=== PATIENT | female | born 1955 | race Caucasian/White ===

== ENCOUNTER 2024-05-02 10:58 | Outpatient (CLI) | payer MEDICARE, SELFPAY ==
--- NOTE | ~2024-05-02 | CT_ITS ---
CT Scan of the Chest without Contrast: Clinical Indication: Lung cancer screening, nicotine dependence Technique: Contiguous sections were acquired throughout the chest without intravenous contrast. Dose reduction technique was used on this scan by utilizing automated exposure control and iterative recon struction technique. The dose-length product (DLP) was 119.62 mGy-cm. Findings: There is no evidence of any significant mediastinal, hilar or axillary lymphadenopathy. There is diff use aneurysmal dilatation of descending thoracic aorta 4.6 cm in diameter.. There is no evidence of pleural or pericardial effusion. The lungs are clear. No pulmonary nodules or infiltrates are noted. Images through the upper abdomen reveal no abnormalities. Impression: Lung RADS 1: Negative. 12 month follow-up CT advised. Diffuse aneurysmal dilatation of the descending thoracic aorta 4.6 cm in diameter. Reviewed, dictated and finalized at location . Impression: Lung RADS 1: Negative. 12 month follow-up CT advised. Diffuse aneurysmal dilatation of the descending thoracic aorta 4.6 cm in diamet er.
--- OUTSIDE RECORDS SUMMARY | 2024-05-02 11:48 | XMS_ITS | Clinical Summary ---
Author Organization [facility] Address [address] [place] [place] [address] Care Team Providers Care Trading Floor Operator Name Role Phone Unavailable Primary Care Provider Unavailabl e Source Comments [facility],non-owned Affiliates and Associated Physician Practices is amultiple site organization consisting of ambulatory clinics and hospital sitesin [place], [place], [place] and [place]. This disclosure is being madepursuant to the Care Everywhere program and may not contain all information available regarding this patient. Last updated 17.[facility] Allergies No known active allergies Medications * Be aware that medications may not be up to date on this document. Alwaysverify current medications with the patient. Medication Sig Dispensed Refills Start Date End Date Status ALPRAZolam (XANAX PO) Act nano Cetirizine HCl (ZYRTEC ALLERGY PO) Active Social History Tobacco Use Types Packs/Day Years Used Date Smoking Tobacco: Never Assessed Sex and Gender Information Value Date Recorded Sex Assigned at Not on file Gender Identity Not on file Sexual Orientation Not on file Last Filed Vital Signs Vital Sign Reading Time Taken Comments Blood Pressure 118/68 11/25/2015 11:51 AM CDT Pulse 77 11/25/2015 11:51 AM CDT Temperature 36.7 C (98.1 F) 11/25/2015 11:51 AM CDT Respiratory Rate 18 11/25/2015 11:51 AM CDT Oxygen Saturation 96% 11/25/2015 11:51 AM CDT Inhaled Oxygen Concentration - - Weight 84.8 kg (187 lb) 11/25/2015 11:51 AM CDT Height 170.8 cm (5' 7.25 ) 11/25/2015 11:51 AM C DT Body Mass Index 29.07 11/25/2015 11:51 AM CDT Plan of Treatment Health Maintenance Due Date Last Done Comments BONE DENSITY TESTING 1957 COLOGUARD (AGES 45-75) - COL ON CA SCREENING 1957 COLON MONITORING 1957 COLONOSCOPY - COLON CA SCREENING 1957 CT COLONOGRAPHY - COLON CA SCREENING 1957 Colorectal Cancer Screening 1957 FIT - COLON CA SCREENING 1957 FLEX SIG - COLON CA SCREENING 1957 LIPID TESTING 1957 MAMMOGRAM 1957 HEPATITIS C SCREENING 09/26/1975 DTAP/TDAP/TD VACCINES (1 - Tdap) 1976 PNEUMOCOCCAL VACCINE 50+ (1 of 1 - PCV) 10/01/2007 ZOSTER VACCINE (1 of 2) 10/01/2007 COVID-19 VACCINE (1 - 2023-2 5 season) 2023 INFLUENZA VACCINE (#1) 2023 DEPRESSION SCREENING 02/20/2024 Respiratory Syncytial Virus (RSV) Vaccine Pt: or over 60 yrs (1 - 1-dose 75+ series) 2032 HEPATITIS B VACCINE Aged Out No longe r eligible based on patient's age to complete this topic HIB VACCINE Aged Out No longer eligi ble based on patient's age to complete this topic HPV VACCINE Aged Out No longer eligi ble based on patient's age to complete this topic MENINGOCOCCAL (Group B) VACC INE SHARED DECISION-MAKING Aged Out No longer eligibl e based on patient's age to complete this topic MENINGOCOCCAL GROUPS A/C/Y/W VACCINE Aged Out No longer eligible b ased on patient's age to complete this topic
--- OUTSIDE RECORDS SUMMARY | 2024-05-02 11:48 | XMS_ITS | Referral Summary ---
Author Organization [facility] [employer] Address [address] [facility] [place] [address] Care Team Providers Care Device Repair Technician Name Role Phone Unavailable Primary Care Provider Unavailabl e Source Comments [facility] [employer],non-owned Affiliates and Associated Physician Practices is amultiple site organization consisting of ambulatory clinics and hospital sitesin [place], [place] and [place]. This disclosure is being madepursuant to the Care Everywhere program and may not contain all information available regarding this patient. Last updated 17.[facility] [employer] Allergies No known active allergies Medications * [...] 11/25/2015 11:51 AM CDT Plan of Treatment Not on file
--- OUTSIDE RECORDS SUMMARY | 2024-05-02 11:48 | XMS_ITS | Encounter Summary ---
Author Organization [facility] Address [address] [place] [address] Care Team Providers Care Policy Services Representative Name Role Phone Alessandra Shau Primary Care Provider [phone] Encounter Details Date Type Department Care Team (Late Contact Info) Description 09/14/2023 MyChart Message Enc [facility] Family & Internal Medicine [address] [phone] Alessandra Sahu FNP [address] [place] [address] Labs Social History Tobacco Use Types Packs/Day Years Used Date Smoking Tobacco: Every Day Cigarettes 0.8 30 Passive Smoke Exposure: Current Smokeless Tobacco: Never Alcohol Use Standard Drinks/Week Comments Not Currently 0 (1 standard drink = 0.6 oz pur e alcohol) PHQ-2 Answer Date Recorded Patient Health Questionnaire-2 Score 3 04/09/2023 Comments No Sex and Gender Information Value Date Recorded Sex Assigned at Female 04/18/2024 10:40 AM BUSINESS TRANSFORMATION ANALYST Legal Sex Female 2:04 PM CDT Gender Identity Female 04/18/2024 10:40 AM BUSINESS TRANSFORMATION ANALYST Sexual Orientation Not on file documented as of this encounter Plan of Treatment Upcoming Encounters Date Type Department Care Team (Late st Contact Info) Description 10/17/2024 10:40 AM CDT Office Visit [facility] Family & Internal Medicine [address] [phone] Alessandra Sahu FNP [facility] [place] [address] documented as of this encounter Visit Diagnoses Not on filedocumented in this encounter Additional Health Concerns Assessment Noted Time PHQ-9 Depression Total Score: 9 04/09/19 24 2:05 PM BUSINESS TRANSFORMATION ANALYST documented as of this encounter Care Teams Policy Services Representative Relationship Specialty Start Date End Date Alessandra Sahu FNP [address] [place] [id number] PCP - General Nurse Practitioner Family 04/09/23 documented as of this encounter
--- OUTSIDE RECORDS SUMMARY | 2024-05-02 11:48 | XMS_ITS | CONTINUITY OF CARE DOCUMENT ---
Author Name shereen silvinanancy Address Unknown Organization [facility] Address [address] [address] [place] [address] Phone [phone] Care Team Providers Care Mountain Guide Name Role Phone José Miguel Fu MD Unavailable TYREE ARNOLD Unavailable TYREE ARNOLD Unavailable PROBLEMS Condition Status Date Provider Notes Family History of Hypertension: active Melida Fu MD Cardiovascular screening active José Miguel person MD Thoracic aortic aneurysm active José Miguel person MD Tobacco abuse - quit active José Miguel Fu MD Emphysema active José Miguel Fu MD Anxiety active José Miguel Fu MD VENOUS INSUFFICIENCY active José Miguel Fu MD ENCOUNTERS Date Type Provider Location Encounter Diag nosis - In-person encounter Office Visit José Miguel Fu MD [place] [facility] - In-person encounter Office Visit José Miguel Fu MD [place] [facility] - In-person encounter Office Visit José Miguel Fu MD [place] [facility] VENOUS INSUFFICIENCY - In-person encounter Office Visit José Miguel Fu MD [place] [facility] - In-person encounter Office Visit José Miguel Fu MD [place] [facility] Family History of Hypertension:Cardiovascular screeningThoracic aortic aneurysmTobacco abuse - quitEmphysemaAnxiety VITAL SIGNS Date Observation Value Provider Body Mass Index (Ratio) 27.62 kg/m2 Melida Fu MD blood pressure, cuff size regular Ja rret blood pressure, diastolic 73 mm[Hg] Ja blood pressure, systolic 108 mm[Hg] [facility] pulse rate 89 /min [facility] oxygen saturation, oximetry 98 % [facility] respiratory rate E&M 12 /min [facility] weight E&M 179 [lb_av] [facility] y height E&M 67.5 [in_i] [facility] Body Mass Index (Ratio) 27.93 kg/m2 Melida Fu MD blood pressure, cuff size regular Ja blood pressure, diastolic 86 mm[Hg] [facility] blood pressure, systolic 141 mm[Hg] [facility] pulse rate 79 /min [facility] respiratory rate E&M 12 /min [facility] oxygen saturation, oximetry 98 % [facility] weight E&M 181 [lb_av] [facility] y height E&M 67.5 [in_i] [facility] y Body Mass Index (Ratio) 28.08 kg/m2 Melida Fu MD blood pressure, cuff size regular Ke rri blood pressure, diastolic 72 mm[Hg] Ke rri ue blood pressure, systolic 126 mm[Hg] [facility] saturation, oximetry 95 % Sis Padilla respiratory rate E&M 12 /min Sis ramirez pulse rate 87 /min Sis Marroquin [facility] weight E&M 182 [lb_av] Sis Marroquin [facility] height E&M 67.5 [in_i] Sis Marroquin [facility] Body Mass Index (Ratio) 30.40 kg/m2 Melida Fu MD respiratory rate E&M 18 /min [facility] blood pressure, diastolic 65 mm[Hg] To [facility] blood pressure, systolic 116 mm[Hg] [facility] weight E&M 197 [lb_av] [facility] oxygen saturation, oximetry 95 % [facility] pulse rate 78 /min [facility] height E&M 67.5 [in_i] [facility] Body Mass Index (Ratio) 30.70 kg/m2 Melida Fu MD blood pressure, diastolic 74 mm[Hg] [facility] Loraine blood pressure, systolic 128 mm[Hg] Erin Baron height E&M 67.5 [in_i] Carina Salazar oxygen saturation, oximetry 96 % Carina Baron pulse rate 80 /min Carina Salazar blood pressure, resting No Elbert a Loraine weight E&M 199 [lb_av] Carina Salazar ALLERGIES Allergy Name Onset Date Reaction Criticality Status MOLD Low Criticality active SEASONAL Low Criticality active HISTORY OF MEDICATION USE Medication Status Instructions Dates Provider Indications Com ments ibuprofen 200 mg tablet active 3 tablet twice a day as needed Sis Padilla collagen, hydr (bovine) (bulk) 100% powder active 2 teaspoon once a day Sis Padilla cyanocobalamin (vitamin B-12) 1,000 mcg tablet active 1 tablet once a day Sis Padilla Vitamin D3 25 mcg (1,000 unit) tablet active 1 tablet once a day Sis Padilla melatonin 5 mg tablet active 1 tablet once a day Sis Martinezzeny naproxen 500 mg tablet active 1 tablet twice a day Sis Padilla #60, 30 days supply, Prescribed by BRIDGET HERNANDES, Filled 08/20/2017 oxybutynin chloride 5 mg tablet active 1 tablet once a day Sis Padilla #30, 30 days supply, Prescribed by BRIDGET HERNANDES, Filled 02/22/2017 AFLURIA QUADRIVALENT 0.5 ML JAVIER active Administer 0.5 ml intramuscularly as directed Sis Padilla #0.5, 1 days supply, Prescribed by ELIDA FABIAN, Filled 11/14/2018 alprazolam 0.25 mg tablet active Take 1 tablet by mouth twice a day as needed Sis Padilla #60, 30 days supply, Prescribed by BRIDGET HERNANDES, Filled 12/16/2018 SOCIAL HISTORY Date Observation Value Provider social history reviewed E&M revi ewed - no changes required José Miguel Fu MD social history E&M S moking History: Timo wayne is a former smoker. José Miguel Fu MD smoking status Former smoker José Miguel Fu MD social history reviewed E&M revmathew ewed - no changes required José Miguel Fu MD drug use no José Miguel Fu MD alcohol use, average drinks per day social José Miguel Fu MD alcohol use yes José Miguel Fu MD smoking history, tot al pack/day 10 José Miguel Fu MD cigarette use yes José Miguel Vogt smoking status Former smoker José Miguel Fu MD social history reviewed E&M revi ewed - no changes required José Miguel Fu MD social history E&M S moking History: Timo wayne is a former smoker. José Miguel Fu MD social history reviewed E&M revi ewed - no changes required José Miguel Fu MD smoking history, [facility] al pack[facility] smoking status Former smoker [facility] number of grandchildren José Miguel Fu MD U eloina Fu MD drug use no José Miguel Fu MD alcohol use, average drinks per day social José Miguel Fu MD alcohol use yes José Miguel Fu MD social history E&M S moking History: iTmo wayne is a former smoker. José Miguel uF MD smoking history, tot al pack/day 10 Carina Baron cigarette use yes Carina Flores social history reviewed E&M revi ewed - no changes required Carina Baron smoking status Former smoker José Miguel Fu MD FAMILY HISTORY Family Member Condition Father Family History of Di abetes: Mother Family History of Hy pertension: Mother Family History of Co luna Cancer: INSURANCE PROVIDERS Payer name Policy type / Coverage type [place] red republican ID AARP MEDICARE ADVANTAGE PLAN 2 HMO HMO [id number] [facility] Medicaid 3 [id number] ADVANCE DIRECTIVES Name Date DISCUSSED - NO DECISION MADE TREATMENT PLAN Date Name Performer [id number] Usman Qayyum MD [id number],C,R ecent Venous Doppler 1 . No evidence of a deep vein thrombosis of the lower extremities bilaterally. 2 . Significant venous insufficiency of the great saphenous vein bilaterally. 3 . Pulsitle venous flow seen in the left CFV. José Miguel Fu MD [id number],S, José Miguel Fu MD [id number],S,P artly resposinve to the compression socks. Advied to wear the compression socks on a regular basis. Will probably recommedn closure of the GSV or verecosities related to it. José Miguel Fu MD [id number],C,H x of treatment of GSV. Had sx but no longer does. José Miguel Fu MD Cardiology José Miguel Fu MD Cardiology:Recent Ve nous Doppler 1 . No evidence of a deep vein thrombosis of the lower extremities bilaterally. 2 . Significant venous insufficiency of the great saphenous vein bilaterally. 3 . Pulsitle venous flow seen in the left CFV. José Miguel Fu MD Cardiology José Miguel Fu MD Cardiology:Partly re sposinve to the compression socks. Advied to wear the compression socks on a regular basis. Will probably recommedn closure of the GSV or verecosities related to it. José Miguel Fu MD Cardiology:Hx of reanna atment of GSV. Had sx but no longer does. José Miguel Fu MD Cardiology José Miguel Fu MD Cardiology José Miguel Fu MD Cardiology:Mild aort ic dilitation on echo and no AAA on abdominal ultrasound. Will repeat an echo in a year. José Miguel Fu MD Cardiology:Measuring 3.[address] scan 01/08/19. Will check an aorta duplex to check for AAA. Will also check an echo. José Miguel Fu MD Cardiology José Miguel Fu MD Cardiology José Miguel Fu MD Cardiology José Miguel Fu MD Date Name Complete Echo Venous Doppler Bilat eral LE - Reflux Complete Echo Aorta Duplex Ultraso und Complete Echo HISTORY OF PROCEDURES Procedure Date Procedure Name Provider Procedure Notes S tatus EKG José Miguel Fu MD completed
--- OUTSIDE RECORDS SUMMARY | 2024-05-02 11:48 | XMS_ITS | Patient Health Summary ---
Author Organization [facility] Address [address] [address] Care Team Providers Care Sustainable Communities Designer Name Role Phone Unavailable Primary Care Provider Unavailabl e Note from [facility],non-owned Affiliates and Associated Physician Practices is amultiple site organization consisting of ambulatory clinics and hospital sitesin [place], [place], [place] and [place]. This disclosure is being madepursuant to the Care Everywhere program and may not contain all information available regarding this patient. Last updated 17.[facility] Allergies No known active allergies Medications * Be aware that medications may not be up to date on this document. Alwaysverify current medications with the patient. * ALPRAZolam (XANAX PO) * Cetirizine HCl (ZYRTEC ALLERGY PO) Social History Tobacco Use Types Packs/Day Years [...]
--- OUTSIDE RECORDS SUMMARY | 2024-05-02 11:48 | XMS_ITS | Clinical Summary ---
Author Organization [facility] Address [facility] [place] [address] Care Team Providers Care Tent Finisher Name Role Phone Alessandra Sahu JOSEPH Primary Care Provider [phone] Allergies Active Allergy Reactions Criticality Noted Date Comments Molds & Smuts Eyes Water & Itch Low 09/01/2022 Seasonal Eyes Water & Itch Low 09/01/2022 Medications naproxen (NAPROSYN) 500 MG tablet Take 1 tablet (500 mg total) by mouth 2 (two) times daily with meals. Active cetirizine (ZYRTEC) 10 MG tablet Take 1 tablet (10 mg total) by mouth daily. Active fluticasone propionate (FLONASE) 50 MCG/ACT nasal sprayIndicatio ns:Seasonal allergies 1 spray by Nasal route daily. 16 g 5 05/22/19 24 Active valACYclovir (VALTREX) 1 g tabletIndicati ons:Recurrent cold sores Take 2 tablets (2,000 mg total) by mouth 2 (two) times daily. 90 tablet 1 10/19/19 24 Active Additional Information Patient not taking.Reported on 04/18/2024 traZODone (DESYREL) 50 MG tabletIndicati ons:Primary insomnia TAKE 1 AND 1/2 TABLETS BY MOUTH DAILY 45 tablet 01/28/20 24 Active albuterol sulfate HFA 108 (90 Base) MCG/ACT inhalerIndicat ions:Wheezing Inhale 2 puffs into the lungs every 4 (four) hours as needed. 18 g 5 03/11/19 25 Active oxybutynin XL (DITROPAN-XL) 10 MG 24 hr tabletIndicati ons:OAB (overactive bladder) Take 1 tablet (10 mg total) by mouth daily. 30 tablet 1 03/18/19 25 Active ALPRAZolam (XANAX) 0.25 MG tabletIndicati ons:Anxiety Take one tablet by mouth BID prn 60 tablet 1 04/18/19 25 Active methylPREDNISo KEENAN granda, (MEDROL DOSEPAK) 4 MG tabletIndicati ons:Ear ache Take 1 tablet (4 mg total) by mouth see administration instructions. 6 TABLETS ON DAY ONE, 5 TABLETS DAY TWO, 4 TABLETS DAY THREE, 3 TABLETS DAY FOUR, 2 TABLETS DAY FIVE, AND 1 TABLET DAY SIX 1 each 04/22/19 25 Active MYRBETRIQ 25 MG 24 hr tabletIndicati ons:OAB (overactive bladder) Take 1 tablet (25 mg total) by mouth daily. 90 tablet 3 03/11/19 25 025 Discontin ued(Insur irvin guadalupe) ALPRAZolam (XANAX) 0.25 MG tabletIndicati ons:Anxiety Take one tablet by mouth BID prn 60 tablet 1 03/11/19 25 025 Discontin ued(Reord er) Active Problems Problem Noted Date Diagnosed Date Pulmonary emphysema, unspeci fied emphysema type ([facility]/HCC HHS/HCC) 04/18/2024 Thoracic aortic aneurysm without rupture, unspec ified part 04/18/2024 Skin abnormalities 10/19/2023 Discoloration of skin of face 10/19/2023 Skin lesion of back 10/19/2023 Skin lesion of breast 10/19/2023 Nicotine dependence, cigarettes, uncomplicated 0 04/11/2023 Anxiety 04/11/2023 Primary insomnia 04/11/2023 OAB (overactive bladder) 04/11/2023 Post-menopausal 04/11/2023 Vitamin D deficiency, unspecified 04/11/2023 Varicose veins of both lower extremities, unspecified whether complicated 04/11/2023 Recurrent cold sores 04/11/2023 Family history of colon cancer in mother 024 Overweight with body mass in dex (BMI) of 29 to 29.9 in adult 04/09/2023 Encounters Date Type Department Care Team Description 04/28/[address] [address] Alessandra Sahu FNP Orders 04/24/[address] [address] Alessandra Sahu FNP Lab Results 04/21/[address] [address] Alessandra Sahu FNP Ear Problem (C/o congestion in ears) 04/18/2024 10:40 AM RUBBER CURER Office Visit [address] [address] Alessandra Sahu FNP Follow Up (6 mo f/u) 04/18/2024 - 04/18/2024 11:59 PM RUBBER CURER Hospital Encounter [facility] [place] [address] Alessandra Sahu FNP Discharge Disposition: Home or Self Care (Routine Discharge) 04/18/2024 Travel 04/10/2024 Patient Outreach [address] [address] Alessandra Sahu FNP Pre-visit Gap Closure 03/18/[address] [address] Alessandra Sahu FNP Medication from Last 3 Months Immunizations Name Administration Dates Next Due Abrysvo Respiratory Syncytia l Virus (RSV) 0.5 mL, PF 06/11/2023 Fluzone High Dose (IIV, triv alent, 0.5mL) 12/04/2023 Fluzone High Dose - >Age 65 (Prefilled Syringe) 11/29/2022 Influenza (Generic) 12/03/2020, 7,11/28/2015,2014,12/02/2014,11/29/2013,12/15/2011 Influenza Adult (Generic) 11/29/2021,,11/11/2019,2018,11/14/2018,11/01/2017 Pneumococcal (Pneumovax 23) 04/13/2020 Pneumococcal (Prevnar 20) 11/03/2022 Shingrix 12/04/2023 Tdap (Generic) 06/30/2021 Family History Medical History Relation Comments Hypertension Father Cancer Mother Colon Cancer Hypertension Mother varicose vein Sister Relation Status Comments Father Mother Alive Sister Alive Social History Tobacco Use Types Packs/Day Years Used Date Smoking Tobacco: Every Day Cigarettes 0.8 30 Passive Smoke Exposure: Current Smokeless Tobacco: Never Tobacco Cessation:Ready to Q uit: Yes; Counseling Given: Yes Alcohol Use Standard Drinks/Week Comments Not Currently 0 (1 standard drink = 0.6 oz pur e alcohol) PHQ-2 Answer Date Recorded Patient Health Questionnaire-2 Score 1 04/18/2024 Comments No Sex and Gender Information Value Date Recorded Sex Assigned at Female 04/18/2024 10:40 AM RUBBER CURER Legal Sex Female 2:04 PM CDT Gender Identity Female 04/18/2024 10:40 AM RUBBER CURER Sexual Orientation Not on file Last Filed Vital Signs Vital Sign Reading Time Taken Comments Blood Pressure 124/80 04/18/2024 10:44 AM RUBBER CURER Pulse 62 04/18/2024 10:44 AM RUBBER CURER Temperature 36.8 C (98.2 F) 04/18/2024 10:44 AM RUBBER CURER Respiratory Rate 15 04/18/2024 10:44 AM RUBBER CURER Oxygen Saturation 97% 04/18/2024 10:44 AM RUBBER CURER Inhaled Oxygen Concentration - - Weight 82.8 kg (182 lb 8 oz) 04/18/2024 10:44 AM RUBBER CURER Height 167.6 cm (5' 6 ) 04/18/2024 10:44 AM RUBBER CURER Body Mass Index 29.46 04/18/2024 10:44 AM RUBBER CURER Plan of Treatment Upcoming Encounters Date Type Department Care Team (Late st Contact Info) Description 10/17/2024 10:40 AM CDT Office Visit [facility] Family [facility] Internal Medicine [address] [address] Alessandra Sahu FNP [address] [place] [address] Health Maintenance Due Date Last Done Comments Annual Medicare Wellness Visit 2022 Dexa Scan (General) 2022 Zoster Vaccines (2 of 2) 01/29/2024 12/04/2023 COVID-19 Vaccine (4 - season) 2025 11/29/2021, 02/22/2021, 05/29/2020 Postponed from 10/21/2023 (Patient Refused) Mammogram Screening 05/31/2025 06/01/2023 Colorectal Cancer Screening Colonoscopy (10 Years) 01/30/2027 01/30/2022 DTaP, Tdap and Td Vaccines (2 - Td or Tdap) 07/01/2031 06/30/2021 Pneumococcal Vaccine: 65+ Years Completed 11/03/2022, 04/13/2020 RSV Immunization or 60+ Years Completed 06/11/2023 Influenza Adult Completed 12/04/2023, 11/19, 11/29/2021, Additional history exists Hepatitis C Completed 04/18/2024 PHQ-2 (Physician [place]) Completed 04/18/2024 Meningococcal B Vaccine Aged Out No l onger eligible based on patient's age to complete this topic Meningococcal Vaccine Aged Out No luna woody eligible based on patient's age to complete this topic RSV Immunizations Under 20 Months Aged Out No longer eligible based on patient's age to complete this topic Procedures Procedure Name Priority Date/Time Associated Diagnosis Comments CBC W/DIFF AUTOMATED Routine 04/22/2024 12:05 PM RUBBER CURER Thoracic aortic aneurysm without rupture, unspecified part Overweight with body mass index (BMI) of 29 to 29.9 in adult URINALYSIS MICRO ONLY 04/22/2024 12:00 PM RUBBER CURER URINALYSIS Routine 04/22/2024 12:00 PM RUBBER CURER Thoracic aortic aneurysm without rupture, unspecified part Overweight with body mass index (BMI) of 29 to 29.9 in adult HEPATITIS C ANTIBODY Routine 04/18/2024 12:14 PM RUBBER CURER Encounter for hepatitis C screening test for low risk patient LIPID PANEL Routine 04/18/2024 12:14 PM RUBBER CURER Thoracic aortic aneurysm without rupture, unspecified part Overweight with body mass index (BMI) of 29 to 29.9 in adult TSH W/REFLEX Routine 04/18/2024 12:14 PM RUBBER CURER Thoracic aortic aneurysm without rupture, unspecified part Overweight with body mass index (BMI) of 29 to 29.9 in adult Chronic fatigue VITAMIN D, 25 OH Routine 04/18/2024 12:1 4 PM RUBBER CURER Vitamin D deficiency, unspecified URIC ACID BLOOD Routine 04/18/2024 12:14 PM RUBBER CURER Thoracic aortic aneurysm without rupture, unspecified part Overweight with body mass index (BMI) of 29 to 29.9 in adult COMPREHENSIVE METABOLIC PANEL Routine 04/18/2024 12:14 PM RUBBER CURER Thoracic aortic aneurysm without rupture, unspecified part Overweight with body mass index (BMI) of 29 to 29.9 in adult FOLIC ACID SERUM Routine 04/18/2024 12:1 4 PM RUBBER CURER Thoracic aortic aneurysm without rupture, unspecified part Overweight with body mass index (BMI) of 29 to 29.9 in adult Anxiety Primary insomnia MAGNESIUM Routine 04/18/2024 12:14 PM RUBBER CURER Thoracic aortic aneurysm without rupture, unspecified part Overweight with body mass index (BMI) of 29 to 29.9 in adult Anxiety Primary insomnia VITAMIN B-12 Routine 04/18/2024 12:14 PM RUBBER CURER Thoracic aortic aneurysm without rupture, unspecified part Overweight with body mass index (BMI) of 29 to 29.9 in adult Anxiety Primary insomnia COLLECTION VENOUS BLOOD VENIPUNCTURE Routine 04/18/2024 11:04 AM RUBBER CURER Thoracic aortic aneurysm without rupture, unspecified part Overweight with body mass index (BMI) of 29 to 29.9 in adult Anxiety Primary insomnia Vitamin D deficiency, unspecified Encounter for hepatitis C screening test for low risk patient MG/PCCL UDS W CONF Routine 04/18/2024 10 :48 AM RUBBER CURER Encounter for long-term (current) drug use MAMMOGRAM GENERIC (SCAN ORDER) 06/01/2023 COLONOSCOPY GENERIC (SCAN ORDER) 01/30/2022 from Last 3 Months or Most Recently Relevant to Health Maintenance Results * (ABNORMAL) CBC W/DIFF AUTOMATED (04/22/2024 12:05 PM RUBBER CURER) Pathologist [facility] WBC 7.8 3.4 - 10.8 x10E3/uL [facility] RBC 5.30(H) 3.77 - 5.28 x10E6/uL [facility] HGB 16.2(H) 11.1 - 15.9 g/dL [facility] 1 HCT 49.8(H) 34.0 - 46.6 % [facility] 1 MCV 94 79 - 97 fL [facility] 1 MCH 30.6 26.6 - 33.0 pg [facility] 1 MCHC 32.5 31.5 - 35.7 g/dL [facility] 1 RDW 12.8 11.7 - 15.4 % [facility] 1 PLATELET COUNT 215 150 - 450 x10E3/uL [facility] 1 NEUTROPHILS % 57 Not Estab. % [facility] LYMPHOCYTES % 34 Not Estab. % [facility] MONOCYTES % 7 Not Estab. % [facility] 1 EOSINOPHILS % 2 Not Estab. % [facility] 1 BASOPHILS % 0 Not Estab. % [facility] 1 ABS. NEUTROPHILS 4.4 1.4 - 7.0 x10E3/uL [facility] 1 ABS. LYMPHOCYTES 2.7 0.7 - 3.1 x10E3/uL [facility] 1 MONOCYTES 0.5 0.1 - 0.9 x10E3/uL [facility] 1 ABS. EOSINOPHILS 0.1 0.0 - 0.4 x10E3/uL [facility] 1 ABS. BASOPHILS 0.0 0.0 - 0.2 x10E3/uL [facility] 1 ABS. IMMATURE GRANULOCYTES 0 Not Estab. % [facility] 1 ABS. IMMATURE GRANULOCYTES 0.0 0.0 - 0.1 x10E3/uL [facility] 1 04/22/2024 12:0 5 PM RUBBER CURER 04/22/2024 Narrative [facility] - 04/23/2024 6:09 AM RUBBER CURER Performed at: [address] [place] [id number] Bridge/Structure Inspection Team Leader: Sg Crawford PhD, Phone: [phone] Alessandra Porraseugenio [facility] Final Result Performing Organization Address [facility] de Phone Number [facility] [address] [place] [address] [facility] * (ABNORMAL) URINALYSIS (04/22/2024 12:00 PM RUBBER CURER) [facility] SPECIFIC GRAVITY (U) 1.008 1.005 - 1.03 [facility] 1 PH (U) 7.5 5.0 - 7.5 [facility] 1 COLOR (U) Yellow Yellow [facility] 1 APPEARANCE SEMEN Clear Clear [facility] 1 LEUK ESTERASE (U) 1+(A) Negative [facility] 1 PROTEIN (U) Negative Negative/T [facility] 1 GLUCOSE (U) Negative Negative [facility] 1 KETONES MG/DL (U) Negative Negative [facility] 1 BLOOD (U) 1+(A) Negative [facility] 1 BILIRUBIN (U) Negative Negative [facility] 1 UROBILINOGEN 0.2 0.2 - 1.0 mg/dL [facility] 1 NITRITES Negative Negative [facility] 1 MICROSCOPIC DESCRIPTION See below: [facility] 1 Comment:Microscopic was dottie cated and was performed. URINE SPECIMEN OBTAINED BY CLEAN CATCH PROCEDURE / Unknown 04/22/2024 12:00 PM RUBBER CURER 04/22/2024 Narrative [facility] - 04/23/2024 6:09 AM RUBBER CURER Performed at: [facility] [id number] Bridge/Structure Inspection Team Leader: Sg Crawford PhD, Phone: [phone] Alessandra Sahu [facility] URINE ORDERABLES Final Result Performing Organization Address [facility]/ZIP Co de Phone Number [facility] [address] [place] [address] [facility] * URINALYSIS MICRO ONLY (04/22/2024 12:00 PM RUBBER CURER) WBC/HPF 0-5 0 - 5 /hpf [facility] 1 RBC/HPF None seen 0 - 2 /hpf [facility] 1 EPI/HPF 0-10 0 - 10 /hpf [facility] 1 URINE CASTS 1 QTY None seen None seen /lpf [facility] 1 BACTERIA (U) None seen None seen/ [facility] 1 04/22/2024 12:0 0 PM RUBBER CURER 04/22/2024 Narrative [facility] - 04/23/2024 6:09 AM RUBBER CURER Performed at: 01 - [facility] [address] [id number] Bridge/Structure Inspection Team Leader: Sg Crawford PhD, Phone: [phone] us Alessandra Kilzer ADOBE CQ DEVELOPER URINE ORDERABLES Final Result [facility] [address] [place] [id number] [facility] * TSH W/REFLEX (04/18/2024 12:14 PM RUBBER CURER) Pathologist [facility] TSH 2.935 0.358 - 3.740 uIU/ML 04/18/2024 4:25 PM RUBBER CURER [facility] 04/18/2024 12:1 4 PM RUBBER CURER Alessandra Vernzer ADOBE CQ DEVELOPER LABORATORY Final Result Performing Organization Address City/[facility]/ZIP Co de Phone Number [facility] [address] [place] [address], * VITAMIN B-12 (04/18/2024 12:14 PM RUBBER CURER) Pathologist [facility] VITAMIN B12 S/P/B 296 193 - 986 PG/ML 04/18/2024 4:25 PM RUBBER CURER [facility] 04/18/2024 12:1 4 PM RUBBER CURER us Alessandra Kilzer ADOBE CQ DEVELOPER LABORATORY Final Result -[facility] SYLWIA HICKMAN [address] [place] [address], * COMPREHENSIVE METABOLIC PANEL (04/18/2024 12:14 PM RUBBER CURER) [facility] SODIUM S/P/B 141 136 - 145 MMOL/L 04/18/2024 4:25 PM RUBBER CURER [facility] POTASSIUM S/P/B 4.7 3.5 - 5.1 MMOL/L 04/18/2024 4:25 PM RUBBER CURER [facility] CHLORIDE S/P/B 104 98 - 107 MMOL/L 04/18/2024 4:25 PM RUBBER CURER [facility] CO2 27.4 21 - 32 MMOL/L 04/18/2024 4:25 PM RUBBER CURER [facility] GLUCOSE 85 70 - 99 MG/DL 04/18/2024 4:25 PM RUBBER CURER [facility] BUN 8 7 - 18 MG/DL 04/18/2024 4:25 PM RUBBER CURER [facility] CREATININE S/P/B 0.59 0.55 - 1.02 MG/DL 04/18/2024 4:25 PM RUBBER CURER [facility] CALCIUM S/P/B 9.4 8.4 - 10.5 MG/DL 04/18/2024 4:25 PM RUBBER CURER [facility] BILIRUBIN TOTAL S/P/B 0.7 0.2 - 1.0 MG/DL 04/18/2024 4:25 PM RUBBER CURER [facility] ALKALINE PHOSPHATASE S/P/B 77 55 - 142 U/L 04/18/2024 4:25 PM RUBBER CURER [facility] AST 16 15 - 37 U/L 04/18/2024 4:25 PM RUBBER CURER [facility] ALT 18 14 - 59 U/L 04/18/2024 4:25 PM [facility] TOTAL PROTEIN S/P/B 6.8 6.4 - 8.2 G/DL 04/18/2024 4:25 PM RUBBER CURER [facility] ALBUM[facility] S/P/B 3.9 3.4 - 5.0 G/DL 04/18/2024 4:25 PM [facility]BB[facility] CUR[facility] ANION GAP 9.6 5 - 15 MMOL/L 04/18/2024 4:25 PM [facility]BB[facility] CURER [facility] Comment:REFERENCE RANGE NOT ESTABLISHED OSMOLALITY (CALC) 290 MOSM/KG 025 4:25 PM RUBBER CURER [facility] Comment:REFERENCE RANGE NOT ESTABLISHED GFR ESTIMATE >90 >90 ML/MIN/1. 73 M2 04/18/2024 4:25 PM [facility]BB[facility] CURER [facility] GFR NOTES GFR REFERENCE S: 04/18/2024 4:25 PM [facility] Comment: THE ESTIMATED GFR IS CALCULATED USING THE 2020 CKD-EPI EQUATION. THE FOLLOWING CATEGORIES FOR GRADING RENAL FUNCTION ARE RECOMMENDED BY THE INTERNATIONAL SOCIETY OF NEPHROLOGY (KDIGO 2012 CLINICAL PRACTICE GUIDELINE). G1,NORMAL OR HIGH: >89 ml/min/1.73 m2 G2,MILDLY DECREASED: 60-89 ml/min/1.73 m2 G3A,MILDLY TO MODERATELY DECREASED: 45-59 ml/min/1.73 m2 G3B,MODERATELY TO SEVERELY DECREASED: 30-44 ml/min/1.73 m2 G4,SEVERELY DECREASED: 15-29 ml/min/1.73 m2 G5,KIDNEY FAILURE: <15 ml/min/1.73 m2 04/18/2024 12:1 4 PM RUBBER CURER Alessandra RUIZ LABORATORY Final Result [facility] SYLWIA HICKMAN [address] [place] [address], * (ABNORMAL) LIPID PANEL (04/18/2024 12:14 PM RUBBER CURER) CHOLESTEROL 198 <200 MG/DL 04/18/2024 4:25 PM [facility]BB[facility] CURER [facility] TRIGLYCERIDES 121 <150 MG/DL 04/18/2024 4:25 PM RUBBER CURER [facility] HDL 50 >40 MG/DL 04/18/2024 4:25 PM RUBBER CURER [facility] LDL-C 124(H) <100 MG/DL 04/18/2024 4:25 PM RUBBER CURER [facility] VLDL CALCULATION 24 5 - 28 MG/DL 04/18/2024 4:25 PM RUBBER CURER [facility] CHOL/HDL RATIO 4.0 0.0 - 4.0 04/18/2024 4:25 PM RUBBER CURER [facility] LDL/HDL 2.5(H) 0.41 - 2.13 04/18/2024 4:25 PM RUBBER CURER [facility] NON HDL CHOLESTEROL 148(H) <140 MG/DL 04/18/2024 4:25 PM RUBBER CURER [facility] 04/18/2024 12:1 4 PM RUBBER CURER [facility] LABORATORY Final Result [facility] [address] [place] [address], [place] [phone] * HEPATITIS C ANTIBODY ([facility] ONLY) (04/18/2024 12:14 PM RUBBER CURER) HEPATITIS C AB NON-REACTI VE NON-REACT WOOD 04/18/2024 8:22 PM RUBBER CURER [facility] Comment: ANTIBODIES TO HCV NOT DETECTED. DOES NOT EXCLUDE THE POSSIBILITY OF EXPOSURE TO HCV. 04/18/2024 12:1 4 PM RUBBER CURER [facility] LABORATORY Final Result [facility] [address] [place] [address], [place] [phone] [id number] * FOLIC ACID SERUM (04/18/2024 12:14 PM RUBBER CURER) [facility] FOLATE 17.2 8.6 - 58.9 NG/ML 04/18/2024 2:57 PM RUBBER CURER [facility] 04/18/2024 12:1 4 PM RUBBER CURER Alessandra Porraseugenio [facility] Final Result [facility] [address] [place] [address], [place] [phone] * VITAMIN D, 25 OH (04/18/2024 12:14 PM RUBBER CURER) [facility] VITAMIN D 25 HYDROXY TOTAL S/P/B 40.9 30 - 100 NG/ML 04/18/2024 4:25 PM RUBBER CURER [facility] Comment: DEFICIENT <20 INSUFFICIENT 20-30 SUFFICIENT 30-100 04/18/2024 12:1 4 PM RUBBER CURER Alessandra Proraseugenio [facility] Final Result Performing Organization Address City/[facility]/ZIP Co de Phone Number [address] [address], [place] [phone] * MAGNESIUM (04/18/2024 12:14 PM RUBBER CURER) [facility] MAGNESIUM 2.4 1.8 - 2.4 MG/DL 04/18/2024 4:25 PM RUBBER CURER [facility] 04/18/2024 12:1 4 PM RUBBER CURER Alessandra Porraseugenio [facility] Final Result [facility] [address] [place] [address], [place] [phone] * URIC ACID BLOOD (04/18/2024 12:14 PM RUBBER CURER) URIC ACID 3.4 2.6 - 6.0 MG/DL 04/18/2024 3:45 PM RUBBER CURER [facility] 04/18/2024 12:1 4 PM RUBBER CURER Alessandra Sahu [facility] Final Result [facility] [address] [place] [address], * (ABNORMAL) MG/PCCL UDS W CONF (04/18/2024 10:48 AM RUBBER CURER) RESULT SUMMARY [facility] Comment: Prescribed Prescribed Not Prescribed Consistent Inconsistent Inconsistent Xanax(TM) PRESCRIBED DRUG 1 (U) Xanax(TM) [facility] FENTANYL SCREEN (U) NEGATIVE <0.5 ng/mL [facility] MORPHINE (U) NEGATIVE <10 ng/mL [facility] DESMETHYLTRAMADOL (U) NEGATIVE <100 ng/mL [facility] TRAMADOL (U) NEGATIVE <100 ng/mL [facility] TRAMADOL COMMENTS [facility] Comment:See LDT Notes AMPHETAMINES PM NEGATIVE <500 ng/mL [facility] BARBITURATES PM (U) NEGATIVE <300 ng/mL [facility] BENZODIAZEPINES PM (U) POSITIVE(A) <100 ng/mL [facility] ALPHAHYDROXYALPRAZOLAM PM (U) 34(H) <25 ng/mL [facility] ALPHAHYDROXYALPRAZOLAM PM MEDMATCH (U) CONSISTENT [facility] MIDAZOLAM PM (U) NEGATIVE <50 ng/mL [facility] ALPHAHYDROXYTRIAZOLAM PM (U) NEGATIVE <50 ng/mL [facility] AMINOCLONAZEPAM PM (U) NEGATIVE <25 ng/mL [facility] OH ET FLURAZEPAM PM (U) NEGATIVE <50 ng/mL [facility] LORAZEPAM PM (U) NEGATIVE <50 ng/mL [facility] NORDIAZEPAM PM (U) NEGATIVE <50 ng/mL [facility] OXAZEPAM PM (U) NEGATIVE <50 ng/mL [facility] TEMAZEPAM PM NEGATIVE <50 ng/mL [facility] BENZODIAZEPINES COMMENTS [facility] [place] Comment:See Benzodiazepines Notes, LDT Notes COCAINE METABOLITE PM (U) NEGATIVE <150 ng/mL [facility] MARIJUANA METABOLITE PM (U) NEGATIVE <20 ng/mL [facility] METHADONE PM (U) NEGATIVE <100 ng/mL [facility] OPIATES PM (U) NEGATIVE <100 ng/mL [facility] OXYCODONE PM (U) NEGATIVE <100 ng/mL [facility] CREATININE RANDOM (U) 60.1 > or = 20.0 mg/dL [facility] pH PM (U) 7.4 4.5 - 9.0 [facility] OXIDANT NEGATIVE <200 mcg/mL [facility] NOTE [facility] Comment: This drug testing is for medical treatment only. Analysis was performed as non-forensic testing and these results should be used only by healthcare providers to render diagnosis or treatment, or to monitor progress of medical conditions. Benzodiazepines Notes: aOH Alprazolam detected is consistent with the use of the drug Alprazolam. LDT Notes: Confirmation tests were developed and their analytical performance characteristics have been determined by [facility]. It has not been cleared or approved by the FDA. This assay has been validated pursuant to the CLIA regulations and is used for clinical purposes. medMATCH(R) enables providers to identify if drug use is consistent or inconsistent with a corresponding prescribed medication(s) list. Healthcare Providers needing Interpretation assistance, please contact us at [phone] ( ) M-F, 8am to 10pm EST URINE SPECIMEN / Unknown 04/18/2024 10:48 AM RUBBER CURER 04/19/2024 2:03 AM RUBBER CURER Narrative Resulting Agency Comment Performing Organization Information: Site ID: [id number] Name: [email or web address] Address: [address] [place] [address] Director: Shaun Tejada Site ID: [place] Name: [facility] Address: [address] [facility] [place] [address] Director: Dayana Arthur MD Alessandra Sahu ADOBE CQ DEVELOPER URINE ORDERABLES Final Result [facility] [address] [facility] [place] [address], [facility] [place] [address] [place] [address] * MAMMOGRAM GENERIC (SCAN ORDER) (06/01/2023) Anatomical Region Laterality Modality Other 06/01/2023 [facility] Scanned SCANNING Final Resu lt * COLONOSCOPY GENERIC (SCAN ORDER) (01/30/2022) 01/30/2022 [facility] Scanned SCANNING Final Resu lt from Last 3 Months or Most Recently Relevant to Health Maintenance Insurance [facility] Care Teams Tent Finisher Relationship Specialty Start Date End Date Alessandra Sahu FNP [address] [place] [address] [phone] PCP - General Nurse Practitioner Family 04/09/23
== END 2024-05-02 10:59 | disposition home or self-care (01) ==
PROVIDERS: PCP Nurse Practitioner Family; Visit Provider Nurse Practitioner Family
DX: Z12.2 Encounter for screening for malignant neoplasm of respiratory organs (principal); F17.210 Nicotine dependence, cigarettes, uncomplicated; I71.23 Aneurysm of the descending thoracic aorta, without rupture
CPT/HCPCS: 71271

== ENCOUNTER 2024-08-25 08:54 | Outpatient (CLI) | payer MEDICARE, SELFPAY ==
--- NOTE | ~2024-08-25 | DEXA_ITS ---
Bone Density Report Name: MIHAELA COTA Age: 68 Sex: Female Ethnicity: White Date of : 1955 Indication: postmenopausal; screening for osteoporosis; height loss; prior fracture; Referring Provider: MARKDiana, RADHA Study: Bone densitometry was performed. Exam Date: August 25, 2024 Accession number: [id number] Bone Density: Region BMD T-score Z-score Classification AP Spine(L1, L2, L3) 1.083 0.6 2.4 Normal Femoral Neck (Left) 0.714 -1.2 0.4 Osteopenia Total Hip (Left) 0.833 -0.9 0.4 Normal Femoral Neck (Right) 0.682 -1.5 0.1 Osteopenia Total Hip (Right) 0.840 -0.8 0.5 Normal Total Hip Mean 0.836 -0.9 0.5 Normal World Health Organization criteria for BMD impression classify patients as: Normal (T-score at or above -1.0), Osteopenia (T-score between -1.0 and -2.5), or Osteoporosis (T-score at or below -2.5). 10-year Fracture Risk(1): Major Osteoporotic Fracture 15% Hip Fracture 3.0% Reported Risk Factors: [place] (), Neck BMD=0.682, BMI=28.0, previous fracture, smoking (1) FRAX(R) Version 3.08. Fracture probability calculated for an untreated patient. Fracture probability may be lower if the patient has received treatment. Clinical Information Provided by Patient: Has had a low trauma fracture Smokes Has used the following medications: Vitamin D Patient maximum height was 69 Menopause Age: 57 No regular weight bearing exercise Drinks caffeinated beverages Onset of menses at age 15 Number of children 1 Impression: The patient has low bone mass, based on the Right Femoral Neck T-score. The patient has an estimated ten-year risk of hip fracture of 3% and an estimated ten-year risk of major fracture of 15%, based on the WHO FRAX algorithm. The patient has risk factors, including: smoking, previous fracture. Discussion: BONE DENSITY IS LOW AT ONE OR MORE SKELETAL SITES. THE PATIENT'S BMD AND CLINICAL RISK FACTORS CONTRIBUTE TO THIS PATIENT'S INCREASED RISK OF FRACTURE. This patient's lowest T-score is low at one or more skeletal sites. It meets the World Health Organization's (WHO) criteria for ?low bone mass? (T-score between -1.0 and -2.5). The patient's 10-year risk of hip fracture as calculated by FRAX exceeds the threshold where pharmacological therapy is recommended by the National Osteoporosis Foundation (NOF). However, all treatment decisions require clinical judgment and consideration of individual patient factors, including patient preferences, comorbidities, previous drug use, risk factors not captured in the FRAX model (e.g., frailty, falls, vitamin D deficiency, increased bone turnover, interval significant decline in bone density) and possible under or overestimation of fracture risk by FRAX. The patient should follow a healthful lifestyle (good nutrition with adequate calcium and vitamin D, and appropriate weight-bearing exercise). Follow-Up: Consider a repeat BMD and Vertebral Fracture Assessment (VFA) exam in 2 years or sooner if medically necessary, to reassess this patient's status. Reported by: REBECA on 08/25/2024 9:37:00 AM. Reviewed, dictated and finalized at location A.
--- OUTSIDE RECORDS SUMMARY | 2024-08-25 09:12 | XMS_ITS | Clinical Summary ---
Author Organization [facility] [employer] Address [address] [place] [address] Care Team Providers Care Artisan Plasterer Name Role Phone Unavailable Primary Care Provider Unavailabl e Source Comments [facility] [employer],non-owned Affiliates and Associated Physician Practices is amultiple site organization consisting of ambulatory clinics and hospital sitesin [place], [place], [place] and [place]. This disclosure is being madepursuant to the Care Everywhere program and may not contain all information available regarding this patient. Last updated 17.[facility] [employer] Allergies No known active allergies Medications * Be aware that medications may not be up to date on this document. Alwaysverify current medications with the patient. ALPRAZolam (XANAX PO) Active Cetirizine HCl (ZYRTEC ALLERGY PO) Active Social History Tobacco Use Types Packs/Day Years Used Date Smoking Tobacco: Never Assessed Comments Unknown Sex and Gender Information Value Date Recorded Sex Assigned at Not on file Legal Sex Female 7:20 PM CDT Gender Identity Not on file Sexual Orientation [...] 11:51 AM CDT Height 170.8 cm (5' 7.25) 11/25/2015 11:51 AM C DT Body Mass [...] VACCINE (1 - 2023-2 5 season) 2023 DEPRESSION SCREENING 02/20/2024 INFLUENZA VACCINE (Season Ended) 2024 Respiratory Syncytial Virus (RSV) Vaccine Pt: or [...] on patient's age to complete this topic Insurance [employer]
== END 2024-08-25 08:55 | disposition home or self-care (01) ==
LOC: ANHIMG 08:58
PROVIDERS: PCP Nurse Practitioner Family; Visit Provider Nurse Practitioner Family
DX: M85.89 Other specified disorders of bone density and structure, multiple sites (principal); Z78.0 Asymptomatic menopausal state
CPT/HCPCS: 77080